=== PATIENT | male | born 1975 | race Caucasian/White ===

== ENCOUNTER → 2018-05-12 | Outpatient (CLI) | payer OTHER ==
[~2018-05-12] MED LIST: ADAL40PE4 SQ; CPAP; MULT-865 PO; ROPI5TAB17 PO
== END ==
LOC: LAB 08:39
PROVIDERS: ATTEND Internal Medicine Rheumatology
DX: M25.541 Pain in joints of right hand (principal); M25.452 Effusion, left hip; M79.10 Myalgia, unspecified site; R76.8 Other specified abnormal immunological findings in serum
CPT/HCPCS: 36415; 86038; 86235; 86618

== ENCOUNTER 2018-05-28 23:24 | Emergency (ER) | payer OTHER ==
[2018-05-28] MEDS ORDERED: PRED20TA6 PO (23:34)
[2018-05-28] MEDS ORDERED: RANI-366 PO (23:34)
--- NOTE | 2018-05-28 23:36 | ER Report ---
History and Physical Time Seen By MD: 23:36 Hx. of Stated Complaint: PATIENT STATES THAT HE HAS RLQ PAIN THAT STARTED YESTERDAY; STATES THAT IT WENT AWAT THEN CAME BACK TONIGHT; PATIENT VOMITED X2 STATES THAT PAIN WILL NOT GO AWAY HPI/ROS Right sided flank and abdominal pain started yesterday and self resolved. Returned today and has not stopped. Also now with nausea and feels pressure when trying to urinate. No fever/chills. No dysuria Remainder of the 14 system rev: Yes Allergies: Coded Allergies: No Known Drug Allergies (Unverified , 11/25/11) Home Meds Reported Medications Ranitidine Hcl (ZANTAC) 150 Mg Tablet, 150 MG PO BID, TAB 05/28/18 Prednisone (PREDNISONE) 20 Mg Tablet, 20 MG PO BID, TAB 05/28/18 Cpap (CPAP HOME) Inha 04/09/17 Ropinirole Hcl (Requip) 5 Mg Tablet, 5 MG PO QDAY 11/25/11 Discontinued Reported Medications Adalimumab (HUMIRA) 40 Mg/0.8 Ml Pen.ij.kit, 40 MG SQ 04/09/17 Multivitamin (DAILY MULTIPLE VITAMIN) 1 Each Tablet, 1 TAB PO DAILY 04/09/17 Reviewed Nurses Notes: Yes Old Medical Records Reviewed: Yes Hx Smoking: No Smoking Status: Never Smoker Hx Substance Use Disorder: No Hx Alcohol Use: No Constitutional Vital Sign - Last 24 Hours 05/28/18 23:27 Temp 97.8 Pulse 83 Resp 17 B/P (MAP) 167/110 Pulse Ox 94 O2 Delivery Room Air Physical Exam General Appearance: The patient is alert, has no immediate need for airway protection and no current signs of toxicity. Eyes: Pupils equal and round no injection. Respiratory: Chest is non tender, lungs are clear to auscultation. Cardiac: regular rate and rhythm Gastrointestinal: Abdomen is soft and non tender, no masses, bowel sounds nor mal. Skin: No rashes or lesions. DIFFERENTIAL DIAGNOSIS: After history and physical exam differential diagnosis was considered for abdominal pain including but not limited to appendicitis, cholecystitis, gastritis and urinary tract infection. Medical Decision Making Data Points Result Diagram: 05/28/18 2350 05/28/18 2350 Laboratory Hematology Test 05/28/18 23:29 05/28/18 23:50 Urine Color Yellow Urine Clarity Clear Urine pH 5.0 pH (4.8-9.5) Urine Specific [place] 1.030 Urine Protein 30 mg/dL (NEGATIVE) Urine Glucose (UA) Negative mg/dL (NEGATIVE) Urine Ketones Trace mg/dL (NEGATIVE) Urine Blood Large (NEGATIVE) Urine Nitrite Negative (NEGATIVE) Urine Bilirubin Negative (NEGATIVE) Urine Urobilinogen 2.0 mg/dL (0.2-1.9) Urine Leukocyte Esterase Negative (NEGATIVE) Urine RBC 106 /HPF (0-2/HPF) Urine WBC 2 /HPF (0-5/HPF) Urine Squamous Epithelial Cells Few /LPF (</=FEW) Urine Bacteria Negative /HPF (NONE-FEW) Urine Mucus Few /HPF (NONE-FEW) Red Blood Count 5.25 M/uL (4.00-5.60) Mean Corpuscular Volume 87.5 fL (80.0-96.0) Mean Corpuscular Hemoglobin 29.7 pg (26.0-33.0) Mean Corpuscular Hemoglobin Concent 34.0 g/dL (32.0-36.0) Red Cell Distribution Width 13.7 % (11.5-14.5) Mean Platelet Volume 8.0 fL (7.2-11.1) Neutrophils (%) (Auto) 73.7 % (39.4-72.5) Lymphocytes (%) (Auto) 17.2 % (17.6-49.6) Monocytes (%) (Auto) 7.7 % (4.1-12.4) Eosinophils (%) (Auto) 1.0 % (0.4-6.7) Basophils (%) (Auto) 0.4 % (0.3-1.4) Nucleated RBC Relative Count (auto) 0.4 /100WBC Neutrophils # (Auto) 9.3 K/uL (2.0-7.4) Lymphocytes # (Auto) 2.2 K/uL (1.3-3.6) Monocytes # (Auto) 1.0 K/uL (0.3-1.0) Eosinophils # (Auto) 0.1 K/uL (0.0-0.5) Basophils # (Auto) 0.0 K/uL (0.0-0.1) Nucleated RBC Absolute Count (auto) 0.05 K/uL Sodium Level 137 mmol/L (137-145) Potassium Level 3.6 mmol/L (3.5-5.0) Chloride Level 108 mmol/L (98-107) Carbon Dioxide Level 27 mmol/L (22-30) Blood Urea Nitrogen 23 mg/dl (9-21) Creatinine 1.40 mg/dl (0.66-1.25) Glomerular Filtration Rate Calc 55.1 Random Glucose 125 mg/dl (75-110) Calcium Level 8.8 mg/dl (8.4-10.2) Total Bilirubin 0.6 mg/dl (0.2-1.3) Aspartate Amino Transf (AST/SGOT) 17 U/L (0-35) Alanine Aminotransferase (ALT/SGPT) 41 U/L (0-56) Alkaline Phosphatase 65 U/L (0-126) Total Protein 6.9 g/dl (6.3-8.2) Albumin 3.8 g/dl (3.5-5.0) Chemistry Test 05/28/18 23:29 05/28/18 23:50 Urine Color Yellow Urine Clarity Clear Urine pH 5.0 pH (4.8-9.5) Urine Specific [place] 1.030 Urine Protein 30 mg/dL (NEGATIVE) Urine Glucose (UA) Negative mg/dL (NEGATIVE) Urine Ketones Trace mg/dL (NEGATIVE) Urine Blood Large (NEGATIVE) Urine Nitrite Negative (NEGATIVE) Urine Bilirubin Negative (NEGATIVE) Urine Urobilinogen 2.0 mg/dL (0.2-1.9) Urine Leukocyte Esterase Negative (NEGATIVE) Urine RBC 106 /HPF (0-2/HPF) Urine WBC 2 /HPF (0-5/HPF) Urine Squamous Epithelial Cells Few /LPF (</=FEW) Urine Bacteria Negative /HPF (NONE-FEW) Urine Mucus Few /HPF (NONE-FEW) White Blood Count 12.6 k/uL (4.5-11.0) Red Blood Count 5.25 M/uL (4.00-5.60) Hemoglobin 15.6 g/dL (14.0-18.0) Hematocrit 45.9 % (42.0-52.0) Mean Corpuscular Volume 87.5 fL (80.0-96.0) Mean Corpuscular Hemoglobin 29.7 pg (26.0-33.0) Mean Corpuscular Hemoglobin Concent 34.0 g/dL (32.0-36.0) Red Cell Distribution Width 13.7 % (11.5-14.5) Platelet Count 234 K/uL (150-450) Mean Platelet Volume 8.0 fL (7.2-11.1) Neutrophils (%) (Auto) 73.7 % (39.4-72.5) Lymphocytes (%) (Auto) 17.2 % (17.6-49.6) Monocytes (%) (Auto) 7.7 % (4.1-12.4) Eosinophils (%) (Auto) 1.0 % (0.4-6.7) Basophils (%) (Auto) 0.4 % (0.3-1.4) Nucleated RBC Relative Count (auto) 0.4 /100WBC Neutrophils # (Auto) 9.3 K/uL (2.0-7.4) Lymphocytes # (Auto) 2.2 K/uL (1.3-3.6) Monocytes # (Auto) 1.0 K/uL (0.3-1.0) Eosinophils # (Auto) 0.1 K/uL (0.0-0.5) Basophils # (Auto) 0.0 K/uL (0.0-0.1) Nucleated RBC Absolute Count (auto) 0.05 K/uL Glomerular Filtration Rate Calc 55.1 Calcium Level 8.8 mg/dl (8.4-10.2) Total Bilirubin 0.6 mg/dl (0.2-1.3) Aspartate Amino Transf (AST/SGOT) 17 U/L (0-35) Alanine Aminotransferase (ALT/SGPT) 41 U/L (0-56) Alkaline Phosphatase 65 U/L (0-126) Total Protein 6.9 g/dl (6.3-8.2) Albumin 3.8 g/dl (3.5-5.0) Urinalysis Test 05/28/18 23:29 Urine Color Yellow Urine Clarity Clear Urine pH 5.0 pH (4.8-9.5) Urine Specific [place] 1.030 Urine Protein 30 mg/dL (NEGATIVE) Urine Glucose (UA) Negative mg/dL (NEGATIVE) Urine Ketones Trace mg/dL (NEGATIVE) Urine Blood Large (NEGATIVE) Urine Nitrite Negative (NEGATIVE) Urine Bilirubin Negative (NEGATIVE) Urine Urobilinogen 2.0 mg/dL (0.2-1.9) Urine Leukocyte Esterase Negative (NEGATIVE) Urine RBC 106 /HPF (0-2/HPF) Urine WBC 2 /HPF (0-5/HPF) Urine Squamous Epithelial Cells Few /LPF (</=FEW) Urine Bacteria Negative /HPF (NONE-FEW) Urine Mucus Few /HPF (NONE-FEW) ED Course/Re-evaluation ED Course History, physical, and CT scan consistent with 3 mm ureteral calculi at the UVJ. Pain controlled with Toradol. Given Flomax in the emergency department. Will discharge with take home pack of Lortab and Zofran as well. Also counseled to continue with ibuprofen 600 mg every 6 hours. Follow-up with his primary care physician. Decision to Disposition Date: May 29, 2018 Decision to Disposition Time: 01:40 Depart Departure Latest Vital Signs Vital Signs Date Time Temp Pulse Resp B/P (MAP) Pulse Ox O2 Delivery O2 Flow Rate FiO2 05/28/18 23:27 97.8 83 17 167/110 94 Room Air Impression: Primary Impression: Ureteral calculus, right Condition: Improved Disposition: HOME OR SELF-CARE New Scripts Ketorolac Tromethamine (KETOROLAC TROMETHAMINE) 10 Mg Tab 10 MG PO Q6H PRN for PAIN, #12 TAB 0 Refills Prov: NIR ARNETT MD 05/29/18 Hydrocodone Bit/Acetaminophen (HYDROCODON-ACETAMINOPHEN 5-325) 1 Each Tablet 1 EACH PO Q4H PRN for PAIN, #10 TAB 0 Refills Prov: NIR ARNETT MD 05/29/18 Patient Instructions: Ureteral Stones (ED) NIR ARNETT MD May 28, 2018 23:36
[2018-05-28] MEDS ORDERED: NS(*) 0.9% 1000 ML BAG 1,000 ML IV ONE (23:40)
[2018-05-29 00:04] LABS: PLATELET COUNT, AUTOMATED 234 K/uL (150-450)
[2018-05-29] MEDS ORDERED: KETOROLAC 30 MG/ML VIAL IVP ONE (00:25)
--- NOTE | 2018-05-29 01:01 | RADIOLOGY IMAGING REPORT ---
FACILITY: [facility] [place] PATIENT NAME: Felipe Koehler : 1975 MR: [id number] V: [id number] EXAM DATE: ORDERING PHYSICIAN: NIR ARNETT TECHNOLOGIST: Location: [facility] Patient: Felipe Koehler : 1975 Visit/Account:[id number] Date of Sevice: 05/29/2018 CT ABDOMEN PELVIS W/O CON HISTORY: Right-sided pain. Evaluate for ureteral stone. COMPARISON: None. TECHNIQUE: Axial images were obtained from the lung bases through the symphysis pubis without intrave nous contrast. Sagittal and coronal reformats were performed. One of the following dose optimization techniques was utilized in the performance of this exam: Autom ated exposure control; adjustment of the mA and/or kV according to the patient's size; or use of an i terative reconstruction technique. Specific details can be referenced in the facility's radiology CT exam operational policy. CONTRAST: None. FINDINGS: Lower chest: There is minimal atelectasis. Liver: Normal. Gallbladder/biliary: The gallbladder is contracted. No intrahepatic or extrahepatic ductal dilation. Pancreas: Mild to moderate atrophy. Spleen: Normal. Adrenals: Normal. Kidneys/ureters/bladder: There is a 3 mm obstructing calculus at the distal right ureterovesical junc tion (image 468 series 3). There is mild right hydronephrosis and hydroureter. The left kidney, the l eft ureter, and the bladder are normal. GI/mesentery/peritoneal cavity: There is no bowel obstruction. There is no wall thickening or pericol onic stranding. The appendix is normal. No free air or free fluid. Vessels: There is minimal atherosclerosis of the right common iliac artery and of the left internal i liac artery. No aneurysm. Nodes: Normal. Pelvis: There is a small fat-containing right inguinal hernia. Bones/vertebra/soft tissues: Posterior fusion on the right at L4-5. Hardware is intact. There are vac uum clefts and mild loss of disc height at L5-S1. There is are circumferential disc bulges at L3-4 an d L2-3. Vertebral body heights are maintained. There is a slight leftward curvature of the lumbar spi ne. IMPRESSION: 1. 3 mm obstructing calculus at the distal right ureterovesical junction causes mild right hydronephr osis and hydroureter. 2. Small fat-containing right inguinal hernia. 3. Minimal atherosclerosis of the right common iliac and left internal iliac arteries, advanced for a ge. Report Dictated By: Rand Orta at 05/29/2018 12:47 AM Report E-Signed By: Rand Orta at 05/29/2018 12:56 AM WSN:[id number]
[2018-05-29 01:30] VITALS: BP 115/69
[2018-05-29] MEDS ORDERED: ACET/HYDROC 5/325MG TH ER ONLY 2 TAB/BOTTLE PO ONE (01:30)
[2018-05-29] MEDS ORDERED: TAMSULOSIN HCL 0.4 MG CAP PO ONE (01:30)
[2018-05-29] MEDS ORDERED: ONDANSETRON 4 MG ODT TH SL ONE (01:30)
[2018-05-29] MEDS ORDERED: KET10 PO (01:43)
[2018-05-29] MEDS ORDERED: LOR5/325 PO (01:43)
== END 2018-05-29 01:50 | disposition home or self-care (01) ==
LOC: ER 23:39
DX: N13.2 Hydronephrosis with renal and ureteral calculous obstruction (principal); N13.4 Hydroureter
CPT/HCPCS: 74176; 81001; 85025; 96361; 96374; 99284; J1885; J7030; S0119; 82040; 82247; 82310; 82374; 82435; 82565; 82947; 84075; 84132; 84155; 84295; 84450; 84460; 84520